=== PATIENT | female | born 1950 | race Caucasian/White ===

== ENCOUNTER → 2018-06-19 | Outpatient (CLI) | payer BC, MEDICARE ==
[~2018-06-19] MED LIST: TRAM50TA PO; UNABLE MC
--- NOTE | 2018-06-22 08:43 | RAD ---
DATE: 06/19/2018 EXAM: MAMMO ALEENA SCREENING BILATERAL HISTORY: Benign right biopsy in the past. COMPARISON: 03/27/2012 screening mammogram This study was interpreted with the benefit of Computerized Aided Detection (CAD ). Breast Density: DENSE The breast parenchyma is dense, which could reduce the sensitivity of mammography. Breast parenchyma level density D. FINDINGS: Parenchymal distribution is stable. No suspicious calcifications, dominant masses, or distortion. IMPRESSION: BI-RADS CATEGORY: 2 BENIGN FINDING(S) RECOMMENDED FOLLOW-UP: PQRS compliance statement: Patient information was entered into a reminder system with a target due date in 1 year for the next mammogram. Mammography is a sensitive method for finding small breast cancers, but it does not detect them all and is not a substitute for careful clinical examination. A negative mammogram does not negate a clinically suspicious finding and should not result in delay in biopsying a clinically suspicious abnormality. "Our facility is accredited by the [employer] Mammography Program." MOOKIED
== END | disposition home or self-care (01) ==
LOC: MAMMO 08:46
PROVIDERS: ATTEND Nurse Practitioner Family
DX: Z12.31 Encounter for screening mammogram for malignant neoplasm of breast (principal)
CPT/HCPCS: 77063; 77067

== ENCOUNTER 2018-11-26 12:43 | Observation (INO) | payer BC, MEDICARE ==
[~2018-11-26] VITALS: Ht 167.6 cm; Wt 65.8 kg
[2018-11-26 13:30] LABS: BASO % 1 % (0-3); EOS # 0.1 x10^3/uL (0.0-0.7); EOS % 1 % (0-3); HEMATOCRIT 40.9 % (36.0-47.0); HEMOGLOBIN 13.5 g/dL (12.0-15.5); LYMPH # 1.6 x10^3/uL (1.0-4.8); LYMPH % 25 % (24-48); MEAN CORPUSCULAR HEMOGLOBIN 29 pg (25-35); MEAN CORPUSCULAR HGB CONC 33 g/dL (31-37); MEAN CORPUSCULAR VOLUME 89 fL (79-100); MONO # 0.7 x10^3/uL (0.0-1.1); MONO % 10 % (0-9); NEUT # 4.1 x10^3uL (1.8-7.7); NEUT % 63 % (31-73); PLATELET COUNT 192 x10^3/uL (140-400); RED BLOOD COUNT 4.58 x10^6/uL (3.50-5.40); RED CELL DISTRIBUTION WIDTH 13.8 % (11.5-14.5); WHITE BLOOD COUNT 6.5 x10^3/uL (4.0-11.0)
--- NOTE | 2018-11-26 13:31 | EKG ---
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
--- NOTE | 2018-11-26 13:45 | RAD ---
CHEST AP ONLY Clinical indications: PT STATES HAVING MID CHEST PAIN, HEAVINESS AND TROUBLE BREATHING FIR 4 DAYS. COMPARISON: January 24, 2011 Findings: No acute lung infiltrate or pleural effusion or pulmonary edema or lung mass or pneumothorax is seen. The heart size, pulmonary vasculature, mediastinum and both peggy are stable. Old healed fracture of the proximal left humerus is seen. Impression: No acute radiographic abnormality is seen. Electronically signed by: Rakan Gannon MD (11/26/2018 1:42 PM) [place] [id number]
[2018-11-26 13:46] LABS: CALCIUM 9.4 mg/dL (8.5-10.1); CREATININE 0.8 mg/dL (0.6-1.0); GFR 71.1; POTASSIUM 4.3 mmol/L (3.5-5.1)
[2018-11-26 13:52] LABS: ALBUMIN 3.7 g/dL (3.4-5.0); ALBUMIN/GLOBULIN RATIO 1.1 (1.0-1.7); TOTAL BILIRUBIN 0.4 mg/dL (0.2-1.0); TOTAL PROTEIN 7.1 g/dL (6.4-8.2)
[2018-11-26] MEDS ORDERED: NITROGLYCERIN SUBLINGUAL 0.4 MG BOTTLE OF 25. SL PRN (15:00)
[2018-11-26] MEDS ORDERED: ASPIRIN CHEWABLE 81 MG TABLET. PO ONE (15:30)
--- NOTE | 2018-11-26 15:55 | PHYS DOC ---
Past Medical History Past Medical History: Hypertension Past Surgical History: Appendectomy, Other Additional Past Surgical Histo: Arm fracture and repair. Alcohol Use: Occasionally Drug Use: None Adult General Chief Complaint Chief Complaint: CHEST PAIN HPI HPI Patient is a 68 year old female who presents the ER for evaluation of chest pain. Patient reports constant chest pressure/heaviness with radiation to bilateral extremities for the past 4 days, 7 out of 10. Unclear if it is exertional. Some intermittent shortness of breath. Patient reports that she has had similar episodes in the past. States that she has had a reassuring cardiac evaluation including a cath, but this was last completed 10 years ago. Maybe patient had a stress test approximately 4-5 years ago. States that this is the most severe episode. Patient has had some chronic dysphagia for the past 2-3 years. PCP is encouraged her to have an EGD which she has not had done. Has some significant anxiety at this time. Denies any increased anxiety does not feel that this is related to her presentation. No LE swelling or pain. No history DVT. Denies any recent travel. No recent foreign travel. Review of Systems Review of Systems Constitutional: Denies fever or chills [] Eyes: Denies change in visual acuity, redness, or eye pain [] HENT: Denies nasal congestion or sore throat [] Respiratory: Denies cough. Intermittent SOB Cardiovascular: +chest pain, +palpitations, no LE edema GI: Denies abdominal pain, nausea, vomiting, bloody stools or diarrhea [] : Denies dysuria or hematuria [] Musculoskeletal: Denies back pain or joint pain [] Integument: Denies rash or skin lesions [] Neurologic: Denies headache, focal weakness or sensory changes [] Endocrine: Denies polyuria or polydipsia [] All other systems were reviewed and found to be within normal limits, except as documented in this note. Current Medications Current Medications Current Medications Medications (Trade) Dose Ordered Sig/Nneka Start Time Stop Time Status Last Admin Dose Admin Nitroglycerin (Nitrostat) 0.4 mg PRN Q5MIN PRN 11/26/18 15:00 11/26/18 15:11 0.4 MG Allergies Allergies Allergies Coded Allergies Type Severity Reaction Last Updated Verified No Known Drug Allergies 07/01/14 No Physical Exam Physical Exam Constitutional: Well developed, well nourished, anxious, non-toxic appearing HENT: Normocephalic, atraumatic, Eyes: PERRLA, EOMI, Neck: Normal range of motion, no tenderness, supple, no stridor. [] Cardiovascular:Heart rate regular rhythm, no murmur [] Lungs & Thorax: Bilateral breath sounds clear to auscultation [] Abdomen: Bowel sounds normal, soft, no tenderness, no masses, no pulsatile masses. [] Skin: Warm, dry, no erythema, no rash. [] Back: No tenderness, no CVA tenderness. [] Extremities: No tenderness, no cyanosis, Neurologic: Alert and oriented X 3, no focal deficits noted. [] Psychologic: Affect normal, judgement normal, mood normal. [] Current Patient Data Vital Signs Vital Signs Date Time Temp Pulse Resp B/P (MAP) Pulse Ox O2 Delivery O2 Flow Rate FiO2 11/26/18 15:13 60 15 118/60 (79) 96 Room Air 11/26/18 12:50 97.5 97.5 Lab Values Laboratory Tests Test 11/26/18 13:00 White Blood Count 6.5 x10^3/uL (4.0-11.0) Red Blood Count 4.58 x10^6/uL (3.50-5.40) Hemoglobin 13.5 g/dL (12.0-15.5) Hematocrit 40.9 % (36.0-47.0) Mean Corpuscular Volume 89 fL (79-100) Mean Corpuscular Hemoglobin 29 pg (25-35) Mean Corpuscular Hemoglobin Concent 33 g/dL (31-37) Red Cell Distribution Width 13.8 % (11.5-14.5) Platelet Count 192 x10^3/uL (140-400) Neutrophils (%) (Auto) 63 % (31-73) Lymphocytes (%) (Auto) 25 % (24-48) Monocytes (%) (Auto) 10 % (0-9) H Eosinophils (%) (Auto) 1 % (0-3) Basophils (%) (Auto) 1 % (0-3) Neutrophils # (Auto) 4.1 x10^3uL (1.8-7.7) Lymphocytes # (Auto) 1.6 x10^3/uL (1.0-4.8) Monocytes # (Auto) 0.7 x10^3/uL (0.0-1.1) Eosinophils # (Auto) 0.1 x10^3/uL (0.0-0.7) Basophils # (Auto) 0.0 x10^3/uL (0.0-0.2) Sodium Level 144 mmol/L (136-145) Potassium Level 4.3 mmol/L (3.5-5.1) Chloride Level 106 mmol/L (98-107) Carbon Dioxide Level 30 mmol/L (21-32) Anion Gap 8 (6-14) Blood Urea Nitrogen 19 mg/dL (7-20) Creatinine 0.8 mg/dL (0.6-1.0) Estimated GFR (Cockcroft-Gault) 71.1 BUN/Creatinine Ratio 24 (6-20) H Glucose Level 99 mg/dL (70-99) Calcium Level 9.4 mg/dL (8.5-10.1) Total Bilirubin 0.4 mg/dL (0.2-1.0) Aspartate Amino Transferase (AST) 15 U/L (15-37) Alanine Aminotransferase (ALT) 25 U/L (14-59) Alkaline Phosphatase 76 U/L (46-116) Troponin I Quantitative < 0.017 ng/mL (0.000-0.055) Total Protein 7.1 g/dL (6.4-8.2) Albumin 3.7 g/dL (3.4-5.0) Albumin/Globulin Ratio 1.1 (1.0-1.7) Lipase 138 U/L (73-393) Laboratory Tests 11/26/18 13:00 Laboratory Tests 11/26/18 13:00 EKG EKG 1252: Sinus rhythm, frequent PVCs. No significant ST segment changes. Heart rate 62.[] Radiology/Procedures Radiology/Procedures CXR Impression: No acute radiographic abnormality is seen.[] Course & Med Decision Making Course & Med Decision Making Pertinent Labs and Imaging studies reviewed. (See chart for details) 1553: Denies change of pain with nitroglycerin. Troponin very reassuring in setting of 4 days of constant pain. EKG with frequent PVCs but no other acute abnormalities. Patient is continued to have some frequent PVCs and does seem to have some symptoms of palpitations associated with those. Patient very anxious. Will continue to manage pain with morphine. Will give aspirin. Patient does have cardiac risk factors. Will admit for continued cardiac evaluation though suspect the patient has some underlying GI cause. Discussed case with Dr. Kovacs who is on-call for IPC is agreeable to admission. Patient is hemodynamically stable in the ER. Dragon Disclaimer Dragon Disclaimer This electronic medical record was generated, in whole or in part, using a voice recognition dictation system. Departure Departure Impression: Primary Impression: Chest pain Disposition: ADMITTED INPATIENT Admitting Physician: Jennfier Kovacs Condition: GUARDED Referrals: CAMILO MACE MD (PCP) CHARLY MAURO DO Nov 26, 2018 15:55
[2018-11-26] MEDS ORDERED: MORPHINE SULFATE 4 MG/ML VIAL. IV ONE (16:00)
--- NOTE | 2018-11-26 16:32 | PDOC2 ---
CONSULT Date of Consult Date of Consult DATE: 11/26/18 TIME: 16:32 Reason for Consult Reason for Consult: Chest pain Referring Physician Referring Physician: Dr. Baldwin Identification/Chief Complaint Chief Complaint Chest pain Source Source: Chart review, Patient History of Present Illness Reason for Visit: 68 y/o female presented with retrosternal chest pressure 6/10 severity present on continuous basis for last four days. She also complained of associated dyspnea but denied any orthopnea/PND, palpitations or syncope. She stated that the pain is slightly worse with exertion or deep inspiration. She denied any family history of premature CAD. Past Medical History Cardiovascular: HTN Past Surgical History Past Surgical History: Appendectomy Family History Family History negative for premature CAD Social History Social History Admitted to occasional alcohol use but denied any smoking or drug use Current Medications Current Medications Current Medications Nitroglycerin (Nitrostat) 0.4 mg PRN Q5MIN PRN SL CHEST PAIN Last administered on 11/26/18at 15:11; Start 11/26/18 at 15:00 Aspirin (Children'S Aspirin) 324 mg 1X ONCE PO ; Start 11/26/18 at 15:30; Stop 11/26/18 at 15:31; Status DC Morphine Sulfate (Morphine Sulfate) 4 mg 1X ONCE IV ; Start 11/26/18 at 16:00; Stop 11/26/18 at 16:01; Status DC Active Scripts Active Reported Unable To Obtain Meds From Prior To Admit (Info) Each 1 Each MC Tramadol Hcl 50 Mg Tablet 1 Tab PO PRN Q6HRS Allergies Allergies: Coded Allergies: No Known Drug Allergies (Unverified , 07/01/14) ROS General: YES: Malaise PSYCHOLOGICAL ROS: No: Hallucinations Eyes: No Loss of vision ENDOCRINE: No: Palpitations Respiratory: YES: Shortness of breath; No: Hemoptysis Cardiovascular: yes Chest Pain Gastrointestinal: No Melena Genitourinary: No Hematuria Neurological: No Seizures Skin: No Rash Physical Exam General: Alert, Oriented X3 HEENT: Atraumatic, PERRLA Lungs: Clear to auscultation Heart: Regular rate Abdomen: Soft, No tenderness Extremities: No edema Psych/Mental Status: Mood NL Vitals VITALS Vital Signs Date Time Temp Pulse Resp B/P (MAP) Pulse Ox O2 Delivery O2 Flow Rate FiO2 11/26/18 15:18 64 15 130/63 (85) 98 Room Air 11/26/18 12:50 97.5 97.5 Labs Labs Laboratory Tests Test 11/26/18 13:00 White Blood Count 6.5 x10^3/uL (4.0-11.0) Red Blood Count 4.58 x10^6/uL (3.50-5.40) Hemoglobin 13.5 g/dL (12.0-15.5) Hematocrit 40.9 % (36.0-47.0) Mean Corpuscular Volume 89 fL (79-100) Mean Corpuscular Hemoglobin 29 pg (25-35) Mean Corpuscular Hemoglobin Concent 33 g/dL (31-37) Red Cell Distribution Width 13.8 % (11.5-14.5) Platelet Count 192 x10^3/uL (140-400) Neutrophils (%) (Auto) 63 % (31-73) Lymphocytes (%) (Auto) 25 % (24-48) Monocytes (%) (Auto) 10 % (0-9) Eosinophils (%) (Auto) 1 % (0-3) Basophils (%) (Auto) 1 % (0-3) Neutrophils # (Auto) 4.1 x10^3uL (1.8-7.7) Lymphocytes # (Auto) 1.6 x10^3/uL (1.0-4.8) Monocytes # (Auto) 0.7 x10^3/uL (0.0-1.1) Eosinophils # (Auto) 0.1 x10^3/uL (0.0-0.7) Basophils # (Auto) 0.0 x10^3/uL (0.0-0.2) Sodium Level 144 mmol/L (136-145) Potassium Level 4.3 mmol/L (3.5-5.1) Chloride Level 106 mmol/L (98-107) Carbon Dioxide Level 30 mmol/L (21-32) Anion Gap 8 (6-14) Blood Urea Nitrogen 19 mg/dL (7-20) Creatinine 0.8 mg/dL (0.6-1.0) Estimated GFR (Cockcroft-Gault) 71.1 BUN/Creatinine Ratio 24 (6-20) Glucose Level 99 mg/dL (70-99) Calcium Level 9.4 mg/dL (8.5-10.1) Total Bilirubin 0.4 mg/dL (0.2-1.0) Aspartate Amino Transf (AST/SGOT) 15 U/L (15-37) Alanine Aminotransferase (ALT/SGPT) 25 U/L (14-59) Alkaline Phosphatase 76 U/L (46-116) Troponin I Quantitative < 0.017 ng/mL (0.000-0.055) Total Protein 7.1 g/dL (6.4-8.2) Albumin 3.7 g/dL (3.4-5.0) Albumin/Globulin Ratio 1.1 (1.0-1.7) Lipase 138 U/L (73-393) Laboratory Tests Test 11/26/18 13:00 White Blood Count 6.5 x10^3/uL (4.0-11.0) Red Blood Count 4.58 x10^6/uL (3.50-5.40) Hemoglobin 13.5 g/dL (12.0-15.5) Hematocrit 40.9 % (36.0-47.0) Mean Corpuscular Volume 89 fL (79-100) Mean Corpuscular Hemoglobin 29 pg (25-35) Mean Corpuscular Hemoglobin Concent 33 g/dL (31-37) Red Cell Distribution Width 13.8 % (11.5-14.5) Platelet Count 192 x10^3/uL (140-400) Neutrophils (%) (Auto) 63 % (31-73) Lymphocytes (%) (Auto) 25 % (24-48) Monocytes (%) (Auto) 10 % (0-9) Eosinophils (%) (Auto) 1 % (0-3) Basophils (%) (Auto) 1 % (0-3) Neutrophils # (Auto) 4.1 x10^3uL (1.8-7.7) Lymphocytes # (Auto) 1.6 x10^3/uL (1.0-4.8) Monocytes # (Auto) 0.7 x10^3/uL (0.0-1.1) Eosinophils # (Auto) 0.1 x10^3/uL (0.0-0.7) Basophils # (Auto) 0.0 x10^3/uL (0.0-0.2) Sodium Level 144 mmol/L (136-145) Potassium Level 4.3 mmol/L (3.5-5.1) Chloride Level 106 mmol/L (98-107) Carbon Dioxide Level 30 mmol/L (21-32) Anion Gap 8 (6-14) Blood Urea Nitrogen 19 mg/dL (7-20) Creatinine 0.8 mg/dL (0.6-1.0) Estimated GFR (Cockcroft-Gault) 71.1 BUN/Creatinine Ratio 24 (6-20) Glucose Level 99 mg/dL (70-99) Calcium Level 9.4 mg/dL (8.5-10.1) Total Bilirubin 0.4 mg/dL (0.2-1.0) Aspartate Amino Transf (AST/SGOT) 15 U/L (15-37) Alanine Aminotransferase (ALT/SGPT) 25 U/L (14-59) Alkaline Phosphatase 76 U/L (46-116) Troponin I Quantitative < 0.017 ng/mL (0.000-0.055) Total Protein 7.1 g/dL (6.4-8.2) Albumin 3.7 g/dL (3.4-5.0) Albumin/Globulin Ratio 1.1 (1.0-1.7) Lipase 138 U/L (73-393) Assessment/Plan Assessment/Plan 1. Chest pain with mixed features: [place] ruled out. Doubt ACS since patient has CP for 4 days without any trop elevation. Check 2D echo to assess LVF and rule out WMA. Consider outpatient ischemic evaluation with stress test. 2. HTN: controlled Thank you for your consultation THEO ANGELES MD Nov 26, 2018 16:32
[2018-11-26] MEDS ORDERED: LIDO:MAALOX 1:1 20 ML SINGLE DOSE. SWSW ONE (17:15)
[2018-11-26 19:30] VITALS: BP 114/59
--- NOTE | 2018-11-26 22:07 | HP ---
ADMIT DATE: 11/26/2018 CHIEF COMPLAINT: Chest pain. HISTORY OF PRESENT ILLNESS: The patient is a pleasant 68-year-old female who appears to be much younger than her stated age. She presents with chest pain. She has had this evaluated before in the past, but it was always negative. She had a stress test years ago, states that it was negative, but the test was terrible for her. Now she is having chest pain rated at 7/10. It has been occurring quite often over the past 4 days. She is having some radiation to her arms, is in the middle of her chest, describes as agonizing, worse with moving. She tried taking some home meds, but that did not work. I discussed the case with ER physician. We are going to admit the patient and consult Cardiology. PAST MEDICAL HISTORY: Hypertension, appendectomy, arm fracture. ALLERGIES: None. FAMILY HISTORY: Hypertension. SOCIAL HISTORY: She does not drink, smoke or take drugs. She is retired. MEDICATIONS: Reviewed, please refer to the MRAD. REVIEW OF SYSTEMS: GENERAL: No history of weight change, weakness or fevers. SKIN: No bruising, hair changes or rashes. EYES: No blurred, double or loss of vision. NOSE AND THROAT: No history of nosebleeds, hoarseness or sore throat. HEART: She complains of chest pain. LUNGS: Denies cough, hemoptysis, wheezing or shortness of breath. GASTROINTESTINAL: Denies changes in appetite, nausea, vomiting, diarrhea or constipation. GENITOURINARY: No history of frequency, urgency, hesitancy or nocturia. NEUROLOGIC: Denies history of numbness, tingling, tremor or weakness. PSYCHIATRIC: No history of panic, anxiety or depression. ENDOCRINE: No history of heat or cold intolerance, polyuria or polydipsia. EXTREMITIES: Denies muscle weakness, joint pain, pain on walking or stiffness. PHYSICAL EXAMINATION: VITAL SIGNS: Temperature afebrile, pulse 82, respirations 18, blood pressure 133/90. GENERAL: She is awake, alert, cooperative, very pleasant. Appears much younger than her stated age. HEART: Normal S1, S2. LUNGS: Clear. ABDOMEN: Soft. EXTREMITIES: No edema. SKIN: No rash. ENDOCRINE: No thyromegaly. LYMPHATICS: No cervical nodes. HEMATOPOIETIC: No bruising. PSYCHIATRIC: She is stable. LABORATORY DATA: White count is 6, hemoglobin 13, platelets 192. Electrolytes are normal. Troponin is 0. Chest x-ray is negative. ASSESSMENT AND PLAN: Chest pain, rule out coronary artery disease. The patient is being admitted. We will do cardiac monitoring, serial enzymes, serial EKGs, consult Cardiology. DVT prophylaxis. Full code. Frequent labs, PT, OT. NORRIS DE LA TORRE DO DR: RICKIE/bess JOB#: [id number] / [id number]
[2018-11-26 22:25] VITALS: BP 104/55
[2018-11-27 02:45] VITALS: BP 122/59
[2018-11-27 06:26] LABS: CHOLESTEROL/HDL RATIO 4.4
[2018-11-27 07:00] VITALS: BP 103/57
[2018-11-27] MEDS ORDERED: MV,C1TAB27 PO (08:05)
[2018-11-27] MEDS ORDERED: METO50TA6 PO (08:05)
[2018-11-27] MEDS ORDERED: LISI-334 PO (08:05)
[2018-11-27] MEDS ORDERED: CRESTOR10 MG PO (08:05)
[2018-11-27] MEDS ORDERED: PANT40GR PO (08:05)
--- NOTE | 2018-11-27 08:53 | EKG ---
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
[2018-11-27] MEDS ORDERED: traMADol 50 MG TABLET PO PRN (10:15)
[2018-11-27] MEDS ORDERED: MULTIVITAMIN with MINERAL TABLET. PO SCH (11:00)
[2018-11-27] MEDS ORDERED: LISINOPRIL 20 MG TABLET PO SCH (11:00)
[2018-11-27] MEDS ORDERED: PANTOPRAZOLE 40 MG TABLET.DR. PO SCH (11:00)
[2018-11-27] MEDS ORDERED: LORazepam 0.5 MG TABLET PO PRN (11:00)
[2018-11-27] MEDS ORDERED: METOPROLOL TART IMMED RELEASE 50 MG TABLET. PO SCH (11:00)
[2018-11-27 11:09] VITALS: BP 112/72
--- NOTE | 2018-11-27 11:16 | PDOC ---
PROGRESS NOTES Chief Complaint Chief Complaint Chest pain Palpitations Anxiety Weakness HTN History of Present Illness History of Present Illness Ms Vanessa is a 68yo F who was admitted for CP, PMH of HTN Pt was seen and examined, sitting on the side of her bed with RN in the room States the CP is 5/10 today and constant, and feels a "fluttering" in her chest frequently Reports feeling anxiety today as well Discussed PVCs with patient today Discussed with RN Vitals Vitals Vital Signs Date Time Temp Pulse Resp B/P (MAP) Pulse Ox O2 Delivery O2 Flow Rate FiO2 11/27/18 07:00 97.8 75 16 103/57 (72) 94 Room Air 97.8 Physical Exam General: Alert, Oriented X3, mild distress Heart: Regular rate, Other (occasional PVCs noted) Lungs: Clear Abdomen: Soft, No tenderness Extremities: No clubbing, No edema Skin: No rashes, No significant lesion Labs LABS Laboratory Tests Test 11/26/18 13:00 11/26/18 18:30 11/27/18 02:00 11/27/18 04:00 White Blood Count 6.5 x10^3/uL (4.0-11.0) Red Blood Count 4.58 x10^6/uL (3.50-5.40) Hemoglobin 13.5 g/dL (12.0-15.5) Hematocrit 40.9 % (36.0-47.0) Mean Corpuscular Volume 89 fL (79-100) Mean Corpuscular Hemoglobin 29 pg (25-35) Mean Corpuscular Hemoglobin Concent 33 g/dL (31-37) Red Cell Distribution Width 13.8 % (11.5-14.5) Platelet Count 192 x10^3/uL (140-400) Neutrophils (%) (Auto) 63 % (31-73) Lymphocytes (%) (Auto) 25 % (24-48) Monocytes (%) (Auto) 10 % (0-9) Eosinophils (%) (Auto) 1 % (0-3) Basophils (%) (Auto) 1 % (0-3) Neutrophils # (Auto) 4.1 x10^3uL (1.8-7.7) Lymphocytes # (Auto) 1.6 x10^3/uL (1.0-4.8) Monocytes # (Auto) 0.7 x10^3/uL (0.0-1.1) Eosinophils # (Auto) 0.1 x10^3/uL (0.0-0.7) Basophils # (Auto) 0.0 x10^3/uL (0.0-0.2) Sodium Level 144 mmol/L (136-145) Potassium Level 4.3 mmol/L (3.5-5.1) Chloride Level 106 mmol/L (98-107) Carbon Dioxide Level 30 mmol/L (21-32) Anion Gap 8 (6-14) Blood Urea Nitrogen 19 mg/dL (7-20) Creatinine 0.8 mg/dL (0.6-1.0) Estimated GFR (Cockcroft-Gault) 71.1 BUN/Creatinine Ratio 24 (6-20) Glucose Level 99 mg/dL (70-99) Calcium Level 9.4 mg/dL (8.5-10.1) Total Bilirubin 0.4 mg/dL (0.2-1.0) Aspartate Amino Transf (AST/SGOT) 15 U/L (15-37) Alanine Aminotransferase (ALT/SGPT) 25 U/L (14-59) Alkaline Phosphatase 76 U/L (46-116) Troponin I Quantitative < 0.017 ng/mL (0.000-0.055) < 0.017 ng/mL (0.000-0.055) < 0.017 ng/mL (0.000-0.055) Total Protein 7.1 g/dL (6.4-8.2) Albumin 3.7 g/dL (3.4-5.0) Albumin/Globulin Ratio 1.1 (1.0-1.7) Lipase 138 U/L (73-393) Magnesium Level 2.1 mg/dL (1.8-2.4) Triglycerides Level 198 mg/dL (0-150) Cholesterol Level 153 mg/dL (0-200) LDL Cholesterol, Calculated 78 mg/dL (0-100) VLDL Cholesterol, Calculated 40 mg/dL (0-40) Non-HDL Cholesterol Calculated 118 mg/dL (0-129) HDL Cholesterol 35 mg/dL (40-60) Cholesterol/HDL Ratio 4.4 Test 11/27/18 07:37 Troponin I Quantitative < 0.017 ng/mL (0.000-0.055) Review of Systems Review of Systems Pt reports anxiety, substernal CP, weakness, palpitations Pt denies SOB, n/v Assessment and Plan Assessmemt and Plan Chest pain- atypical Palpitations Anxiety Weakness HTN Plan Will perform echo per cards Outpt vs inpt stress test to further r/o CAD- appreciate cards recs Ativan 0.5mg Q6 prn for anxiety Start home meds- specifically metoprolol Cardiac monitoring Serial enzymes Serial ECGs DVT prophylaxis PT/OT Frequent labs D/C dispo pending Comment Review of Relevant I have reviewed the following items joyce (where applicable) has been applied. Labs Laboratory Tests Test 11/26/18 13:00 11/26/18 18:30 11/27/18 02:00 11/27/18 04:00 White Blood Count 6.5 x10^3/uL (4.0-11.0) Red Blood Count 4.58 x10^6/uL (3.50-5.40) Hemoglobin 13.5 g/dL (12.0-15.5) Hematocrit 40.9 % (36.0-47.0) Mean Corpuscular Volume 89 fL (79-100) Mean Corpuscular Hemoglobin 29 pg (25-35) Mean Corpuscular Hemoglobin Concent 33 g/dL (31-37) Red Cell Distribution Width 13.8 % (11.5-14.5) Platelet Count 192 x10^3/uL (140-400) Neutrophils (%) (Auto) 63 % (31-73) Lymphocytes (%) (Auto) 25 % (24-48) Monocytes (%) (Auto) 10 % (0-9) Eosinophils (%) (Auto) 1 % (0-3) Basophils (%) (Auto) 1 % (0-3) Neutrophils # (Auto) 4.1 x10^3uL (1.8-7.7) Lymphocytes # (Auto) 1.6 x10^3/uL (1.0-4.8) Monocytes # (Auto) 0.7 x10^3/uL (0.0-1.1) Eosinophils # (Auto) 0.1 x10^3/uL (0.0-0.7) Basophils # (Auto) 0.0 x10^3/uL (0.0-0.2) Sodium Level 144 mmol/L (136-145) Potassium Level 4.3 mmol/L (3.5-5.1) Chloride Level 106 mmol/L (98-107) Carbon Dioxide Level 30 mmol/L (21-32) Anion Gap 8 (6-14) Blood Urea Nitrogen 19 mg/dL (7-20) Creatinine 0.8 mg/dL (0.6-1.0) Estimated GFR (Cockcroft-Gault) 71.1 BUN/Creatinine Ratio 24 (6-20) Glucose Level 99 mg/dL (70-99) Calcium Level 9.4 mg/dL (8.5-10.1) Total Bilirubin 0.4 mg/dL (0.2-1.0) Aspartate Amino Transf (AST/SGOT) 15 U/L (15-37) Alanine Aminotransferase (ALT/SGPT) 25 U/L (14-59) Alkaline Phosphatase 76 U/L (46-116) Troponin I Quantitative < 0.017 ng/mL (0.000-0.055) < 0.017 ng/mL (0.000-0.055) < 0.017 ng/mL (0.000-0.055) Total Protein 7.1 g/dL (6.4-8.2) Albumin 3.7 g/dL (3.4-5.0) Albumin/Globulin Ratio 1.1 (1.0-1.7) Lipase 138 U/L (73-393) Magnesium Level 2.1 mg/dL (1.8-2.4) Triglycerides Level 198 mg/dL (0-150) Cholesterol Level 153 mg/dL (0-200) LDL Cholesterol, Calculated 78 mg/dL (0-100) VLDL Cholesterol, Calculated 40 mg/dL (0-40) Non-HDL Cholesterol Calculated 118 mg/dL (0-129) HDL Cholesterol 35 mg/dL (40-60) Cholesterol/HDL Ratio 4.4 Test 11/27/18 07:37 Troponin I Quantitative < 0.017 ng/mL (0.000-0.055) Laboratory Tests Test 11/26/18 13:00 11/26/18 18:30 11/27/18 02:00 11/27/18 04:00 White Blood Count 6.5 x10^3/uL (4.0-11.0) Red Blood Count 4.58 x10^6/uL (3.50-5.40) Hemoglobin 13.5 g/dL (12.0-15.5) Hematocrit 40.9 % (36.0-47.0) Mean Corpuscular Volume 89 fL (79-100) Mean Corpuscular Hemoglobin 29 pg (25-35) Mean Corpuscular Hemoglobin Concent 33 g/dL (31-37) Red Cell Distribution Width 13.8 % (11.5-14.5) Platelet Count 192 x10^3/uL (140-400) Neutrophils (%) (Auto) 63 % (31-73) Lymphocytes (%) (Auto) 25 % (24-48) Monocytes (%) (Auto) 10 % (0-9) Eosinophils (%) (Auto) 1 % (0-3) Basophils (%) (Auto) 1 % (0-3) Neutrophils # (Auto) 4.1 x10^3uL (1.8-7.7) Lymphocytes # (Auto) 1.6 x10^3/uL (1.0-4.8) Monocytes # (Auto) 0.7 x10^3/uL (0.0-1.1) Eosinophils # (Auto) 0.1 x10^3/uL (0.0-0.7) Basophils # (Auto) 0.0 x10^3/uL (0.0-0.2) Sodium Level 144 mmol/L (136-145) Potassium Level 4.3 mmol/L (3.5-5.1) Chloride Level 106 mmol/L (98-107) Carbon Dioxide Level 30 mmol/L (21-32) Anion Gap 8 (6-14) Blood Urea Nitrogen 19 mg/dL (7-20) Creatinine 0.8 mg/dL (0.6-1.0) Estimated GFR (Cockcroft-Gault) 71.1 BUN/Creatinine Ratio 24 (6-20) Glucose Level 99 mg/dL (70-99) Calcium Level 9.4 mg/dL (8.5-10.1) Total Bilirubin 0.4 mg/dL (0.2-1.0) Aspartate Amino Transf (AST/SGOT) 15 U/L (15-37) Alanine Aminotransferase (ALT/SGPT) 25 U/L (14-59) Alkaline Phosphatase 76 U/L (46-116) Troponin I Quantitative < 0.017 ng/mL (0.000-0.055) < 0.017 ng/mL (0.000-0.055) < 0.017 ng/mL (0.000-0.055) Total Protein 7.1 g/dL (6.4-8.2) Albumin 3.7 g/dL (3.4-5.0) Albumin/Globulin Ratio 1.1 (1.0-1.7) Lipase 138 U/L (73-393) Magnesium Level 2.1 mg/dL (1.8-2.4) Triglycerides Level 198 mg/dL (0-150) Cholesterol Level 153 mg/dL (0-200) LDL Cholesterol, Calculated 78 mg/dL (0-100) VLDL Cholesterol, Calculated 40 mg/dL (0-40) Non-HDL Cholesterol Calculated 118 mg/dL (0-129) HDL Cholesterol 35 mg/dL (40-60) Cholesterol/HDL Ratio 4.4 Test 11/27/18 07:37 Troponin I Quantitative < 0.017 ng/mL (0.000-0.055) Medications Current Medications Nitroglycerin (Nitrostat) 0.4 mg PRN Q5MIN PRN SL CHEST PAIN Last administered on 11/26/18at 15:11; Start 11/26/18 at 15:00 Aspirin (Children'S Aspirin) 324 mg 1X ONCE PO Last administered on 11/26/18at 18:12; Start 11/26/18 at 15:30; Stop 11/26/18 at 15:31; Status DC Morphine Sulfate (Morphine Sulfate) 4 mg 1X ONCE IV ; Start 11/26/18 at 16:00; Stop 11/26/18 at 16:01; Status DC Multi-Ingredient Mouthwash/Gargle (Gi Cocktail) 20 ml 1X ONCE SWSW Last administered on 11/26/18at 18:12; Start 11/26/18 at 17:15; Stop 11/26/18 at 17:16; Status DC Lisinopril (Prinivil) 20 mg DAILY PO ; Start 11/27/18 at 11:00 Metoprolol Tartrate (Lopressor) 50 mg BID PO ; Start 11/27/18 at 11:00 Tramadol HCl (Ultram) 50 mg PRN Q6HRS PRN PO PAIN; Start 11/27/18 at 10:15 Multivitamins (Thera M Plus) 1 tab DAILY PO ; Start 11/27/18 at 11:00 Pantoprazole Sodium (Protonix) 40 mg DAILYAC PO ; Start 11/27/18 at 11:00 Atorvastatin Calcium (Lipitor) 40 mg QHS PO ; Start 11/27/18 at 21:00 Lorazepam (Ativan) 0.5 mg PRN Q6HRS PRN PO ANXIETY / AGITATION; Start 11/27/18 at 11:00 Active Scripts Active Reported Metoprolol Tartrate 50 Mg Tablet 1 Tab PO BID Complete Multi Tablet (Mv,Ca,Min/Iron Fum/Fa/Lyco/Lut) 1 Each Tablet 1 Each PO DAILY Protonix (Pantoprazole Sodium) 40 Mg Granpkt.dr 40 Mg PO DAILY Crestor (Rosuvastatin Calcium) 10 Mg Tablet 10 Mg PO HS Lisinopril 20 Mg Tablet 1 Tab PO DAILY Tramadol Hcl 50 Mg Tablet 1 Tab PO PRN Q6HRS Vitals/I & O Vital Sign - Last 24 Hours 11/26/18 11/26/18 11/26/18 11/26/18 12:50 13:26 13:56 14:26 Temp 97.5 97.5 Pulse 66 64 60 58 Resp 15 15 17 12 B/P (MAP) 163/76 (105) 143/65 (91) 159/67 (97) 144/66 (92) Pulse Ox 97 97 98 98 O2 Delivery Room Air Room Air Room Air Room Air 11/26/18 11/26/18 11/26/18 11/26/18 14:56 15:08 15:11 15:13 Pulse 60 58 61 60 Resp 17 12 15 B/P (MAP) 134/64 (87) 165/68 (100) 165/68 118/60 (79) Pulse Ox 98 98 96 O2 Delivery Room Air Room Air Room Air 11/26/18 11/26/18 11/26/18 11/26/18 15:18 15:42 19:30 20:00 Temp 97.6 97.6 Pulse 64 68 64 Resp 15 17 16 B/P (MAP) 130/63 (85) 128/62 (84) 114/59 (77) Pulse Ox 98 97 96 O2 Delivery Room Air Room Air Room Air Room Air 3/04/0911/27/18 11/27/18 22:25 02:45 07:00 Temp 98.3 98.6 97.8 98.3 98.6 97.8 Pulse 65 72 75 Resp 16 15 16 B/P (MAP) 104/55 (71) 122/59 (80) 103/57 (72) Pulse Ox 97 95 94 O2 Delivery Room Air Room Air Room Air Intake and Output 11/26/18 11/26/18 11/27/18 14:59 22:59 06:59 Intake Total 600 ml 950 ml Balance 600 ml 950 ml NORRIS DE LA TORRE III DO Nov 27, 2018 11:16
--- NOTE | 2018-11-27 13:15 | CARD ---
MR#: [id number] Date of Study: 11/27/2018 Ordering Physician: THEO ANGELES, Referring Physician: NORRIS DE LA TORRE Tech: Kenzie Townsend RDCS APPROVED REPORT EXAM: Two-dimensional and M-mode echocardiogram with Doppler and color Doppler. Other Information Quality : Good Rhythm : Frequent PVC's INDICATION Chest Pain 2D DIMENSIONS RVDd2.7 (2.9-3.5cm)Left Atrium(2D)2.7 (1.6-4.0cm) IVSd0.9 (0.7-1.1cm)Aortic Root(2D)2.5 (2.0-3.7cm) LVDd4.4 (3.9-5.9cm)LVOT Diameter2.1 (1.8-2.4cm) PWd0.9 (0.7-1.1cm)LVDs2.4 (2.5-4.0cm) FS (%) 30.0 %SV67.3 ml LVEF(%)60.0 (>50%) Aortic Valve AoV Peak Ady.122.0cm/sAoV VTI22.7cm AO Peak GR.6.0mmHgLVOT Peak Ady.135.8cm/s AO Mean GR.3mmHgAVA (VMAX)3.83cm2 KEARA (VTI)3.48hh4DR P 1/2 Blkb368yi Mitral Valve MV E Viwckugy67.3cm/sMV DECEL [id number] MV A Vkcevsmp55.0cm/sE/A Ratio0.6 LEFT VENTRICLE The left ventricle is normal size. There is normal left ventricular wall thickness. The left ventricu lar systolic function is normal and the ejection fraction is within normal range. The Ejection Fracti on is 55-60%. There is normal LV segmental wall motion. Transmitral Doppler flow pattern is Grade I-a bnormal relaxation pattern. RIGHT VENTRICLE The right ventricle is normal size. The right ventricular systolic function is normal. ATRIA The left atrium size is normal. The right atrium size is normal. The interatrial septum is intact wit h no evidence for an atrial septal defect or patent foramen ovale as noted on 2-D or Doppler imaging. AORTIC VALVE The aortic valve is calcified but opens well. Doppler and Color Flow revealed mild aortic regurgitati on. There is no significant aortic valvular stenosis. MITRAL VALVE The mitral valve is calcified but opens well. There is no evidence of mitral valve prolapse. There is no mitral valve stenosis. Doppler and Color Flow revealed no mitral valve regurgitation noted. TRICUSPID VALVE The tricuspid valve is normal in structure and function. Doppler and Color Flow revealed no tricuspid valve regurgitation noted. There is no tricuspid valve stenosis. PULMONIC VALVE The pulmonary valve is normal in structure and function. Doppler and Color Flow revealed trace pulmon ic valvular regurgitation. There is no pulmonic valvular stenosis. GREAT VESSELS The aortic root is normal in size. The ascending aorta is normal in size. The IVC is normal in size a nd collapses >50% with inspiration. PERICARDIAL EFFUSION There is no evidence of significant pericardial effusion. Critical Notification Critical Value: No <Conclusion> The left ventricular systolic function is normal and the ejection fraction is within normal range. Th e Ejection Fraction is 55-60%. There is normal LV segmental wall motion. Doppler and Color Flow revealed mild aortic regurgitation. Signed by : Agustín Beltran, Electronically Approved : 11/27/2018 13:14:13
[2018-11-27 15:00] VITALS: BP 106/53
[2018-11-27] MEDS ORDERED: LORA0.5T96 PO (15:56)
--- NOTE | 2018-11-27 16:00 | NUR ---
Discharge Note: SYEDA REYNOSO [address] [place] [address] Discharge instructions and discharge home medications reviewed with patient and a copy given. All questions have been answered and understanding verbalized. The following instructions and handouts were given: GERD, chest pain, stress testing Script given for Ativan. Discontinued lines and drains: left hand IV Patient discharged to home with daughter via wheelchair.
[2018-11-27] MEDS ORDERED: ATORVASTATIN CALCIUM 40 MG TABLET. PO SCH (21:00)
[2019-01-22] MEDS ORDERED: OMEG100021 PO (06:25)
== END 2018-11-27 16:00 | disposition home or self-care (01) ==
LOC: ER 12:43 → 2 NORTH 15:15
PROVIDERS: ADMIT Internal Medicine; ATTEND Internal Medicine
DX: R07.89 Other chest pain (principal); R13.10 Dysphagia, unspecified; F41.9 Anxiety disorder, unspecified; I10 Essential (primary) hypertension; R00.2 Palpitations; I49.3 Ventricular premature depolarization; Z90.49 Acquired absence of other specified parts of digestive tract; Z82.49 Family history of ischemic heart disease and other diseases of the circulatory system
CPT/HCPCS: 36415; 71045; 80053; 80061; 83690; 83735; 84484; 85025; 93005; 93306; 99284; G0378; G0379

== ENCOUNTER → 2018-12-04 | Outpatient (CLI) | payer BC, MEDICARE ==
[2018-11-27 15:00] VITALS: BP 106/53
[~2018-12-04] MED LIST changes: +CRESTOR10 MG PO; +LISI-334 PO; +LORA0.5T96 PO; +METO50TA6 PO; +MV,C1TAB27 PO; +OMEG100021 PO; +PANT40GR PO; +REGADENOSON 0.4 MG/5 ML DISP.SYRIN. IV ONE
--- NOTE | 2018-12-04 13:04 | RAD ---
MR#: [id number] Date of Study: 12/04/2018 Ordering Physician: THEO ANGELES, Referring Physician: LUCI DESAI Tech: RT Cecilia (R) (N) APPROVED REPORT Test Type: Pharmacological Stress Nurse/Tech: Renetta Abrams RN Test Indications: CP, THOMAS, Syncope Cardiac History: Hypertension, Family history Medications: See Electronic Medical Record Medical History: See Electronic Medical Record Resting Heart Rate: 64 bpm Resting Blood Pressure: 135/67mmHg Pretest Chest Pain: Atypical angina Nurse/Tech Notes Clear LS, [id number] is very nervous, CP 3/10 (heaviness, no neck pain, no shoulder pain, no radiation t o L arm) w/ weakness, fatigue Consent: The procedure was explained to the patient in lay terms. Informed consent was witnessed. Julio C eout was entered into [email or web address]. History and Stress Test performed by Renetta Abrams RN Pharm. Details Pharmacologic stress testing was performed using 0.4mg per 5ml of regadenoson given intravenously ove r 7-10 seconds. Stress Symptoms Dyspnea, Flushing, Fatigue, weakness on thigh, bella (stayed long even after test was completed) Chest pain typical of angina occurred (Severity 6 , min duration). POST EXERCISE Reason for Termination: Infusion complete Max HR: 103 bpm Max Blood Pressure: 157/67mmHg Chest Pain: Yes. 7/10 remained through the test- reduced to 5/10 ST Change: No. INTERPRETATION Stress EKG Conclusion: No evidence of stress induced EKG changes. Imaging Protocol IMAGE PROTOCOL: Rest Tc-99m/stress Tc-99m 1 day Rest: Stress: Viability: Radiopharm.Tc99m DonhdnrkiGm62a Sestamibi Dose11.1mCi 33mCi Duration 13min. 10min. Img Date 12/04/2018 12/04/2018 Inj-Img Litz20ovu. 60min. Rest Admin Site:IV - Right AntecubitalAdministrator:DE Nichols Stress Admin Site: IV - Right AntecubitalAdministrator: DE Nichols STRESS DATA End Diast. Vol.70.0mlAv. Heart Rate74.0bpm End Syst. Vol.17.0mlCO Index BSA0.0L/min Myocardial Qlhb241.0gEject. Qbvdpuie80.0% Stress Rates Pk. Fill Rate3.49EDV/secLVtime Pk. Fill 238.00msec Pk. Empty Rate4.49ESV/secLVtime Pk. Rbjax862.91msec 1/3 Pk. Fill0.74EDV/sec Stress Scores Regional WT0.00Summed WT0.00 Regional WM0.00Summed WM0.00 The rest and stress images show normal perfusion, normal contraction and thickening. LV Perf. Quant 17 Seg. SSS0.00 17 Seg. SRS10.00 17 Seg. SDS0.00 Stress Defect Extent (% LAD)0.00Rest Defect Extent (% LAD)13.10Rev. Defect Extent (% LAD)0.00 Stress Defect Extent (% LCX) 0.00Rest Defect Extent (% LCX)41.30Rev. Defect Extent (% LCX)0.00 Stress Defect Extent (% RCA)0.00Rest Defect Extent (% RCA)0.00Rev. Defect Extent (% RCA)0.00 Stress Defect Extent (% BRENT)0.00Rest Defect Extent (% BRENT)15.70Rev. Defect Extent (% BRENT)0.00 Other Information Quality:Average Risk Assessment: Low Risk Conclusion 1. No evidence of EKG changes with stress testing. 2. Normal perfusion at stress/rest. 3. Subdiaphragmatic attenuation artifact on rest images only. 4. Low risk study. 5. EF > 60%. Signed by : Agustín Beltran, Electronically Approved : 12/04/2018 13:04:47
== END | disposition home or self-care (01) ==
LOC: NM 10:09
PROVIDERS: ATTEND Internal Medicine Cardiovascular Disease
DX: I20.8 Other forms of angina pectoris (principal); R55 Syncope and collapse; I10 Essential (primary) hypertension; R53.83 Other fatigue; R53.1 Weakness; Z82.49 Family history of ischemic heart disease and other diseases of the circulatory system
CPT/HCPCS: 78452; 93017; 96374; A9500; J2785

== ENCOUNTER → 2019-01-01 | Outpatient (CLI) | payer BC, MEDICARE ==
[~2019-01-01] MED LIST changes: -REGADENOSON 0.4 MG/5 ML DISP.SYRIN. IV ONE
--- NOTE | 2019-01-01 14:09 | RAD ---
MR#: [id number] Date of Study: 01/01/2019 Ordering Physician: THEO ANGELES, Referring Physician: THEO ANGELES Tech: Grace Butt RVt, EDUARDO APPROVED REPORT Patient Location: OUT-PATIENT Indications Bilateral LE weakness VELOCITY AND DOPPLER WAVEFORM ANALYSIS RIGHT cm/secWaveformSeverity LEFT cm/secWaveform Severity pCFA 119.4TriphasicpCFA 112.4Triphasic Prof Fem Art. 97.5TriphasicProf Fem Art. 84.3Triphasic Fem Art Prox. 111.6TriphasicFem Art Prox. 114.9Biphasic Fem Art Mid. 114.0TriphasicFem Art Mid. 110.7Biphasic Fem Art Dist. 105.8TriphasicFem Art Dist. 75.2Biphasic Pop Art(Fossa) 70.7BiphasicPop Art(AK) 73.3Biphasic THERAPEUTIC SPECIALIST Prox. 31.1BiphasicPTA Prox. 77.8Biphasic THERAPEUTIC SPECIALIST Dist. 85.3BiphasicPTA Dist. 87.4Biphasic Per Art Dist.52.7BiphasicPer Art Dist.50.5Biphasic VALERIANO Dist. 70.1BiphasicATA Dist. 67.7Biphasic DPA 111.6BiphasicDPA 99.6Biphasic Findings Grayscale images of the bilateral lower extremity arterial vessels demonstrate mild intimal hyperplas ia. There is a right-sided Kidd's cyst measuring 2.8 x 2.7 x 0.7 cm. Spectral waveforms and color Doppler of the bilateral lower extremities reveal mostly triphasic and b iphasic waveforms. No focal obstruction is noted. There is three-vessel runoff below the knee. Critical Notification Critical Value: No <Conclusion> No significant lower extremity arterial disease. Signed by : Agustín Beltran, Electronically Approved : 01/01/2019 14:09:21
== END | disposition home or self-care (01) ==
LOC: US 09:51
PROVIDERS: ATTEND Internal Medicine Cardiovascular Disease
DX: M71.21 Synovial cyst of popliteal space [Baker], right knee (principal); I77.89 Other specified disorders of arteries and arterioles
CPT/HCPCS: 93925

== ENCOUNTER → 2019-01-22 | Day surgery (SDC) | payer BC, MEDICARE ==
[~2019-01-22] MED LIST changes: +HYDROmorphone 2 MG/ML VIAL IV PRN; +IV RINGERS,LACTATED 1000ML 1,000 ML IV SCH; +LIDOCAINE 1% PF 2 ML VIAL. ID PRN; +LIDOCAINE 2% PF 5 ML VIAL. ONE; +MORPHINE SULFATE 2 MG/ML VIAL. IV PRN; +ONDANSETRON PF 4 MG/2 ML VIAL. IV PRN; +PROCHLORPERAZINE 10 MG/2 ML VIAL. IV PRN; +PROPOFOL 40 ML IV ONE; +fentaNYL PF VIAL 100 MCG/2 ML VIAL IV PRN
[2019-01-22 08:15] VITALS: BP 122/73
== END | disposition home or self-care (01) ==
LOC: ENDOS 06:02
PROVIDERS: ATTEND Internal Medicine Gastroenterology
DX: K29.50 Unspecified chronic gastritis without bleeding (principal); K64.0 First degree hemorrhoids; K21.9 Gastro-esophageal reflux disease without esophagitis; F41.9 Anxiety disorder, unspecified; M19.90 Unspecified osteoarthritis, unspecified site; J45.909 Unspecified asthma, uncomplicated; I10 Essential (primary) hypertension; E78.00 Pure hypercholesterolemia, unspecified; Z85.828 Personal history of other malignant neoplasm of skin; Z82.49 Family history of ischemic heart disease and other diseases of the circulatory system; Z79.899 Other long term (current) drug therapy; Z98.890 Other specified postprocedural states; Z80.0 Family history of malignant neoplasm of digestive organs; Z87.19 Personal history of other diseases of the digestive system
CPT/HCPCS: 43235; 45378; J2001; J2704

== ENCOUNTER → 2019-02-05 | Outpatient (CLI) | payer BC, MEDICARE ==
[2019-01-22 08:15] VITALS: BP 122/73
[~2019-02-05] VITALS: Ht 167.6 cm; Wt 64.9 kg
[~2019-02-05] MED LIST changes: -HYDROmorphone 2 MG/ML VIAL IV PRN; -IV RINGERS,LACTATED 1000ML 1,000 ML IV SCH; -LIDOCAINE 1% PF 2 ML VIAL. ID PRN; -LIDOCAINE 2% PF 5 ML VIAL. ONE; -MORPHINE SULFATE 2 MG/ML VIAL. IV PRN; -ONDANSETRON PF 4 MG/2 ML VIAL. IV PRN; -PROCHLORPERAZINE 10 MG/2 ML VIAL. IV PRN; -PROPOFOL 40 ML IV ONE; +SINCALIDE 1.3 MCG in IV NORMAL SALINE 50ML 30 ML IV ONE; -fentaNYL PF VIAL 100 MCG/2 ML VIAL IV PRN
--- NOTE | 2019-02-05 11:18 | RAD ---
ABDOMEN LTD History: Epigastric pain, chest pain Comparison: None. Findings: Multiple sonographic images of the abdomen are submitted. There is no abnormality of the visualized pancreas. There is segmental visualization of the inferior vena cava. Hepatic echotexture is within normal limits, no focal hepatic lesion demonstrated. Right lobe of liver measured 14.7 cm longitudinal. Common bile duct is within normal limits about 0.1 to 0.2 cm. Gallbladder is present without intraluminal abnormality, wall thickening, pericholecystic fluid. Right kidney measured 10.6 x 5 x 3.9 cm, no hydronephrosis. Inferior right kidney is not well-visualized due to bowel gas. Impression: 1. Inferior right kidney is not well-visualized due to bowel gas, otherwise no significant abnormality demonstrated. Electronically signed by: Bryant Olivia MD (02/05/2019 11:15 AM) [facility]
--- NOTE | 2019-02-05 12:32 | RAD ---
Radionuclide hepatobiliary scan with gallbladder ejection fraction, 02/05/2019: HISTORY: Epigastric pain Following IV injection of 5.5 mCi of technetium 99m Choletec there was prompt uptake of the radionuclide from the blood stream by the liver. Activity is present in the bile ducts and gallbladder at 10 minutes. Initial imaging out to 1 hour showed increasing activity in the gallbladder without extension into the small bowel. Additional imaging was then performed following IV injection of 1.3 mcg of cholecystokinin. The gallbladder ejection fraction was calculated at 78 percent. Activity extends into the small bowel after the cholecystokinin injection. IMPRESSION: 1. No evidence of cystic duct or common bile duct obstruction. 2. The gallbladder ejection fraction is 78 percent Electronically signed by: Dimas Brewster MD (02/05/2019 12:29 PM) [facility]
== END | disposition home or self-care (01) ==
LOC: US 09:50
PROVIDERS: ATTEND Internal Medicine Gastroenterology
DX: R10.13 Epigastric pain (principal); R07.9 Chest pain, unspecified
CPT/HCPCS: 76705; 78227; A9537; J2805

== ENCOUNTER 2019-03-09 06:55 | Outpatient (CLI) | payer BC, MEDICARE ==
[2019-03-09] VITALS (9 sets, daily range): BP systolic 113–143; BP diastolic 56–78
[~2019-03-09] VITALS: Ht 167.6 cm; Wt 65.8 kg
[~2019-03-09 06:55] MED LIST changes: -SINCALIDE 1.3 MCG in IV NORMAL SALINE 50ML 30 ML IV ONE
[2019-03-09] MEDS ORDERED: IODIXANOL 320 MG/ML 100 ML VIAL. ONE (07:38)
[2019-03-09] MEDS ORDERED: LIDOCAINE 1% PF 2 ML VIAL. ONE (07:51)
[2019-03-09 07:52] LABS: HEMATOCRIT 36.5 % (36.0-47.0); HEMOGLOBIN 12.7 g/dL (12.0-15.5); RED BLOOD COUNT 4.18 x10^6/uL (3.50-5.40); RED CELL DISTRIBUTION WIDTH 13.2 % (11.5-14.5); WHITE BLOOD COUNT 4.8 x10^3/uL (4.0-11.0)
[2019-03-09 07:58] LABS: CALCIUM 8.5 mg/dL (8.5-10.1); CREATININE 0.8 mg/dL (0.6-1.0); GFR 71.1; POTASSIUM 4.1 mmol/L (3.5-5.1)
[2019-03-09 08:15] LABS: PROTHROMBIN TIME PATIENT 12.9 SEC (11.7-14.0)
[2019-03-09] MEDS ORDERED: NITROGLYCERIN 200 MCG/2 ML SYRINGE FOR CATH/VASC LAB. ONE (08:31)
[2019-03-09] MEDS ORDERED: HEPARIN for IV BOLUS 10,000 UNIT/10 ML VIAL. ONE (08:31)
[2019-03-09] MEDS ORDERED: fentaNYL PF VIAL 100 MCG/2 ML VIAL ONE (08:31)
[2019-03-09] MEDS ORDERED: MIDAZOLAM HCL/PF 2 MG/2 ML VIAL. ONE (08:31)
[2019-03-09] MEDS ORDERED: VERAPAMIL 5 MG/2 ML VIAL. ONE (08:31)
[2019-03-09] MEDS ORDERED: MIDAZOLAM HCL/PF 2 MG/2 ML VIAL. IV ONE (09:15)
[2019-03-09] MEDS ORDERED: NITROGLYCERIN 200 MCG/2 ML SYRINGE FOR CATH/VASC LAB. IART ONE (09:15)
[2019-03-09] MEDS ORDERED: HEPARIN for IV BOLUS 10,000 UNIT/10 ML VIAL. IART ONE (09:15)
[2019-03-09] MEDS ORDERED: VERAPAMIL 5 MG/2 ML VIAL. IART ONE (09:15)
[2019-03-09] MEDS ORDERED: fentaNYL PF VIAL 100 MCG/2 ML VIAL IV ONE (09:15)
[2019-03-09] MEDS ORDERED: LIDOCAINE 1% PF 2 ML VIAL. INJ ONE (09:15)
[2019-03-09] MEDS ORDERED: IODIXANOL 320 MG/ML 100 ML VIAL. IART ONE (09:15)
--- NOTE | 2019-03-09 09:45 | CARD ---
MR#: [id number] Date of Study: 03/09/2019 Ordering Physician: THEO TATE, Referring Physician: THEO TATE Tech: RT Zac (R) APPROVED REPORT Technologist: RT Zac (R) Nurse: Kelly Jack R.N. Procedure(s) performed: Left heart catheterization, selective coronary angiography and left ventricul ography via right transradial approach. Fluoro time: 2.2 minutes Dose:18 Gycm2 Contrast: 83 cc Moderate sedation: 25 Minutes INDICATION The indication(s) include : Dyspnea on exertion concerning for unstable angina. CSHA Clinical Frailty Scale CSHA Clinical Frailty Scale: Managing Well Heart Failure Heart Failure: No PROCEDURE NARRATIVE After explaining the risks, benefits and alternative options, informed consent was obtained from je ent. Patient was brought to the cardiac Graphite Mill Operator and right wrist was prepped and draped in the usual fashion after confirming a positive modified Braden's test. Arterial access was obtained in the righ t radial artery and a 6 Kazakh sheath was inserted. 6 Kazakh Oral catheter was used to perform barrie ective angiography of the left and right coronary arteries. 6 Kazakh pigtail catheter was used to pe rform left ventriculography. Patient tolerated the procedure well. Hemostasis was achieved using TR band. There were no immediate complications. The following findings were noted. FINDINGS 1. Hemodynamics: Left ventricular end-diastolic pressure of 20 mmHg consistent with chronic diastoli c heart failure. No pullback gradient across the aortic valve. 2. Left ventriculography: Normal left ventricle systolic function with ejection fraction estimated at 60%. No significant mitral regurgitation seen. 3. Coronary angiography: a. The left main coronary artery arose from the left sinus of Valsalva, gave rise to the left anteri or descending and left circumflex arteries and did not show any significant stenosis. b. The left anterior descending artery did not show any significant stenosis. c. The left circumflex artery did not show any significant stenosis. d. The right coronary artery was a large and dominant vessel arising from the right sinus of Valsalv a that did not show any significant stenosis. Conclusion 1. No significant coronary artery disease 2. Normal left ventricular systolic function with ejection fraction estimated at 60%. Signed by : Theo Tate, Electronically Approved : 03/09/2019 09:44:57
--- NOTE | 2019-03-09 11:33 | NUR ---
Discharge Note: SYEDA REYNOSO ACCLatisha Discharge instructions and discharge home medications reviewed with Patient and a copy given. All questions have been answered and understanding verbalized. The following instructions and handouts were given: radial site care, moderate sedation Discontinued lines and drains: left forearm PIV. Patient discharged to home with family
== END 2019-03-09 11:44 | disposition home or self-care (01) ==
LOC: CCL 06:55
PROVIDERS: ATTEND Internal Medicine Cardiovascular Disease
DX: I20.0 Unstable angina (principal); G43.909 Migraine, unspecified, not intractable, without status migrainosus; I10 Essential (primary) hypertension; Z98.890 Other specified postprocedural states
CPT/HCPCS: 36415; 80048; 85027; 85610; 93458; 99152; 99153; C1769; C1892; J1644; J2250; J3010; J3490; Q9967